=== PATIENT | female | born 1960 | race Caucasian/White ===

== ENCOUNTER 2016-10-26 13:46 | Inpatient (IN) | payer BC ==
[~2016-10-26] VITALS: Ht 170.2 cm; Wt 88.7 kg
--- NOTE | ~2016-10-26 | EKG ---
PATIENT: ASHER STEEN UNIT #: [id number] Ventricular Rate: 82 BPM Atrial Rate: 82 BPM P-R Interval: 150 ms QRS Duration: 66 ms Q-T Interval: 396 ms QTC Calculation(Bezet): 462 ms P Holland: 24 degrees Calculated R Holland: -6 degrees Calculated T Holland: 35 degrees Diagnosis Line: Normal sinus rhythm Diagnosis Line: Nonspecific ST and T wave abnormality Diagnosis Line: Prolonged QT Diagnosis Line: Abnormal ECG Diagnosis Line: No previous ECGs available Diagnosis Line: Confirmed by MINNIE MENDEZ MD ([id number]) on Diagnosis Line: 10/26/2016 10:52:24 PM INTERPRETING MD: BREANNA
--- NOTE | ~2016-10-26 | CO ---
Unit #: [id number] #: [id number] Patient: ASHER STEEN [id number] [facility] [place]. [place], [place] [address] [id number] I MR#: [id number] NAME: ASHER STEEN ROOM: 571 Age: 56 Sex: F Admission Date: 10/26/2016 : 1960 Attending Physician: Melvin Vieyra M.D. Primary Care Physician: Yonas Rivas M.D. Consultation Date: 10/26/2016 CONSULTATION REPORT ATTENDING PHYSICIAN Pennie Watt M.D. REASON FOR CONSULTATION Severe iron deficiency anemia. HISTORY Ms. Steen is a 56-year-old, white female who lives at home by herself. Patient was informed by Dr. Rivas's office that she needs to go to the emergency room as her hemoglobin found on blood test was 4.6. Patient mentions history of intermittent hematochezia for several months. She also tells me that she had a colonoscopy about seven or eight years ago, which was unremarkable. For the past year, she has been having intermittent episodes of shortness of breath, palpitations, and near syncope. 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 In fact, she has not seen Dr. Rivas for a long time, in fact several years. Patient is postmenopausal. She does have a history of gastroesophageal reflux, but this is unchanged from baseline and is not very troublesome, rarely bothering her at nighttime. After admission, she was started on Protonix infusion and is getting packed cell transfusions. She has no other significant past medical history and her only surgeries included dilatation and curettage in the past. MEDICATIONS Home medications include: 1. Prilosec [id number] 80 mg p.o. daily. 2. Tylenol. 3. Xanax. 4. Diphenhydramine. ALLERGIES She has no known drug allergies. SOCIAL HISTORY Patient does not smoke, but drinks 4-5 beers on a daily basis and, at times, even more. She used to be a smoker, having stopped more than 10 years ago. FAMILY HISTORY There is no family history of colon or pancreatic cancer or liver disease. Her mother had lung cancer. Unit #: [id number] #: [id number] Patient: ASHER STEEN REVIEW OF SYSTEMS Detailed review of organ systems does not reveal any recent weight loss. No history of fever, chills, or rigors. No history of headache or seizures. There is a history of near syncope symptoms. There is history of shortness of breath. No history of cough, expectoration, or hemoptysis. No history of dysuria, hematuria, or pyuria. There is a history of intermittent hematochezia. No history of skin rash, aphthous ulcers in the mouth, or reactive arthritis. Rest of the organ systems is unremarkable. PHYSICAL EXAMINATION GENERAL APPEARANCE: She is alert and oriented and appears comfortable. The fact that her hemoglobin is 4.6 is not apparent from examination of her palms and conjunctivae. VITAL SIGNS: Her vital signs are stable with a temperature of 98.3, pulse 80 per minute and regular, respiratory rate 16, and blood pressure 129/71. She weighs 198 pounds and appears overweight. Her BMI is 31. HEENT: She has moderate pallor. No icterus or lymphadenopathy. EXTREMITIES: No peripheral edema. CARDIOVASCULAR: Examination reveals normal heart sounds. No murmurs on auscultation. LUNGS: Reveal normal breath sounds with good air entry. ABDOMEN: Soft, obese, and nontender. Liver and spleen are not palpable. Bowel sounds normal. DIAGNOSTIC STUDIES LABORATORY: Lab evaluation shows a hemoglobin of 4.6 with a MCV of 58. White count and platelet counts are normal. INR is 1.1. Serum chemistry shows completely normal metabolic profile. Her iron studies were ordered and show TIBC of 600 and transferrin saturation of 2, and iron of 11 indicating virtually no iron reserves. B12 and folate were normal. CLINICAL IMPRESSION Patient with severe iron deficiency anemia, most likely has happened over a period of time as she has had plenty of time to compensate. The differential diagnosis includes colorectal neoplasia, peptic ulcer disease, angiodysplasia, and with some degree alcoholic suppression of bone marrow. A diagnostic upper gastrointestinal endoscopy and a colonoscopy is warranted. Patient is hesitant to have colonoscopy right now and would rather have it as an outpatient. Therefore, an upper endoscopy will be performed tomorrow and, if that is normal, an outpatient colonoscopy will be scheduled within a week. Patient will be discharged home tomorrow. She will also be started on iron transfusion tomorrow. Thank you very much for asking me to see this patient and I appreciate the consult. Dictated by... Ankur Phelps TD: 10/27/2016 09:53 JOB #: [id number] CC: Pennie Watt M.D. Unit #: [id number] #: [id number] Patient: ASHER STEEN CONSULTATION REPORT Page 1 of 1 X Brando Calvillo MD X CONSULTATION REPORT
--- NOTE | ~2016-10-26 | HP ---
Unit #: [id number] #: [id number] Patient: ASHER STEEN [id number] [facility] [address] [facility]. [place], [place] [address] [id number] I MR#: [id number] NAME: ASHER STEEN ROOM: 21003 Age: 56 Sex: F Admission Date: 10/26/2016 : 1960 Attending Physician: Pennie Watt M.D. Primary Care Physician: Yonas Rivas M.D. HISTORY AND PHYSICAL CHIEF COMPLAINT Abnormal labs. HISTORY OF PRESENT ILLNESS The patient is a 56-year-old female with a past medical history of alcohol abuse who presented to the emergency department for evaluation of the above. The patient states that she has had at least a one-month history of bright red blood with bowel movements. She states that she has had intermittent loose stool. She denies any abdominal pain. She has had decreased energy for the past month, as well as dyspnea on exertion when walking across the room. She denies any chest pain. She has had palpitations. She has had occasional cough. She denies any fever. The patient saw her primary care physician this morning. Labs were done, and she was told to go to the emergency department for a hemoglobin of 4.9. In the emergency department, initial pulse and blood pressure were 102 and 149/79, respectively. Hemoglobin here is 4.6. She was noted to be Hemoccult positive. Two units of packed red blood cells have been ordered, as well as Protonix 80 mg bolus, followed by a drip at 8 mg/hour. She is being admitted to [facility] for evaluation and further treatment. Of note, the patient had a colonoscopy in 2008 that showed hemorrhoids and diverticular disease per the patient. She does not recall where it was done. PAST MEDICAL HISTORY Patient denies hospitalizations. PAST SURGICAL HISTORY 1. Colonoscopy in 2008 showed hemorrhoids and diverticular disease per the patient (no records). 2. D and C. SOCIAL HISTORY The patient is a daily drinker. She states that she drinks four to six beers daily. She denies ever going through withdrawal. She is a former smoker. She denies illicit drug use. She is currently unemployed. Her code status is a Full Code. FAMILY HISTORY Notable for her mother having lung cancer. Her dad at the age of 90. Unit #: [id number] #: [id number] Patient: ASHER STEEN ALLERGIES No known allergies. HOME MEDICATIONS 1. Xanax 0.5 mg twice daily p.r.n. 2. Prilosec 20 mg daily p.r.n. 3. Diphenhydramine 50 mg at bedtime p.r.n. 4. Tylenol 650 mg daily p.r.n. REVIEW OF SYSTEMS A complete review of systems is negative except as indicated in the HPI. The patient denies ever having an EGD. Her last period was in April 2016. She denies any vaginal bleeding. PHYSICAL EXAMINATION VITAL SIGNS: Temperature is 97.8, pulse 102, respirations 16, blood pressure 149/79, and oxygen saturation is 98% on room air. GENERAL: Patient is a female who is awake, alert, and in no acute distress. HEENT: Head is atraumatic. Mucous membranes are moist. NECK: Supple. Trachea is midline. CARDIOVASCULAR: Regular rate and rhythm. LUNGS: Clear to auscultation bilaterally with no increased work of breathing. ABDOMEN: Soft and nontender with bowel sounds present in all four quadrants. Rectal exam was Hemoccult positive per my discussion with ER staff. EXTREMITIES: Nontender with no pedal edema. NEUROLOGIC: Patient is awake and alert. She follows commands. PSYCHIATRIC: Mood and affect are normal. Patient is cooperative. SKIN: Skin of examined areas is warm and dry. DIAGNOSTIC STUDIES LABORATORY: Complete blood count notable for hemoglobin and hematocrit of 4.6 and 16.3, respectively, MCV is 58.1, and RDW 20.7. Comprehensive metabolic panel is essentially normal. Lipase is negative. INR is 1.1. ASSESSMENT The patient is a 56-year-old female with: 1. Symptomatic anemia. The patient's hemoglobin is 4.6 with no baseline for comparison. Two units of packed red blood cells have been ordered. 2. Gastrointestinal bleed. The patient had a colonoscopy in 2008 (no records). 3. Alcohol abuse. The patient's last drink was yesterday. She denies ever going through withdrawal. 4. History of diverticular disease. 5. Former smoker. PLAN 1. Admit to ICU. 2. Clear liquid diet for possible endoscopy. 3. Protonix 80 mg IV if not already given, followed by Protonix drip at 8 mg/hour. 4. Iron studies, B12, and folate. 5. Hemoglobin and hematocrit one hour after transfusion and q.6 hours. Will plan to transfuse for hemoglobin less than 8. 6. Consult Dr. Calvillo regarding GI bleed. Unit #: [id number] #: [id number] Patient: ASHER STEEN 7. Check EKG and cardiac enzymes. 8. Alcohol withdrawal protocol. 9. Check magnesium level. 10. SCDs for DVT prophylaxis. 11. Repeat labs in the morning including magnesium. 12. Additional workup and consultants based on above. Thirty-two (32) minutes critical care time spent in the care of this patient (5:15-5:47 p.m.). Dictated by Ankur Jang/jony TD: 10/26/2016 18:52 JOB #: [id number] HISTORY AND PHYSICAL Page 1 of 1 X Pennie Watt MD X HISTORY AND PHYSICAL
--- NOTE | ~2016-10-26 | DS ---
Unit #: [id number] #: [id number] Patient: ASHER STEEN [id number] [place], [place] [address] [id number] I MR#: [id number] NAME: ASHER STEEN ROOM: 57 Age: 56 Sex: F Admission Date: 10/26/2016 : 1960 Discharge Date: 10/27/2016 Attending Physician: Melvin Vieyra M.D. Primary Care Physician: Yonas Rivas M.D. DISCHARGE SUMMARY DISCHARGE DIAGNOSES 1. Symptomatic anemia. 2. Hematochezia. 3. Alcohol abuse. 4. Iron deficiency. 5. Anxiety disorder. HOSPITAL COURSE The patient is a 56-year-old female who presented to [facility] Emergency Department at the request of primary care provider. Apparently she was noted to have a hemoglobin of 4.9. The patient states that she has been feeling dizzy, especially with standing, off and on for over a year. She states that she has been having bright red blood with bowel movements. The patient was admitted, and laboratory workup revealed an iron deficiency. The patient was taken for EGD, given history of daily alcohol use, and was only noted to have a coincidental Schatzki ring. The patient has had no bleeding while admitted to the hospital. Her hemoglobin is stable at 7.5, and she denies symptoms. As a result, she is being discharged home at this time and has an outpatient colonoscopy scheduled 8 days from today. DISCHARGE MEDICATIONS 1. Tylenol 650 mg p.o. daily as needed for pain. 2. Diphenhydramine 50 mg p.o. q.h.s. p.r.n. sleep. 3. Xanax 0.5 mg p.o. b.i.d. as needed for anxiety. 4. Zantac daily. 5. Iron gluconate 324 mg p.o. b.i.d. FOLLOWUP 1. As mentioned above, the patient should follow up for the colonoscopy, which has already been scheduled. 2. She should follow up with Dr. Rivas within one month of her colonoscopy. Dictated by... Melvin Vieyra M.D. CAM/db Unit #: [id number] #: [id number] Patient: ASHER STEEN TD: 10/28/2016 11:46 JOB #: [id number] DISCHARGE SUMMARY Page 1 of 1 X Melvin Vieyra MD DISCHARGE SUMMARY
[2016-10-26 14:38] LABS: BASOPHIL# 0.1 X10e3 (0-0.3); BASOPHIL% 1.2 % (0-2.5); EOSINOPHIL# 0.1 X10e3 (0-0.7); EOSINOPHIL% 1.3 % (0.0-7.0); HEMATOCRIT 16.3 % (35.0-45.0); LYMPHOCYTE# 1.3 X10e3 (1.0-3.5); LYMPHOCYTE% 21.6 % (17.0-45.0); MEAN CELL VOLUME 58.1 FL (83-96); MEAN CORPUSCULAR HEMOGLOBIN 16.6 PG (28-34); MEAN CORPUSCULAR HGB CONC 28.5 g/dL (30-36); MEAN PLATELET VOLUME 8.1 FL (6.5-11.5); MONOCYTE# 0.7 X10e3 (0-1.0); MONOCYTE% 10.9 % (3.0-12.0); PLATELET COUNT 395 X10e3 (140-420); RED BLOOD COUNT 2.81 X10e (3.90-5.30); RED CELL DISTRIBUTION WIDTH 20.7 % (11.0-15.5); WHITE BLOOD COUNT 6.2 X10e3 (4.0-10.5)
[2016-10-26 14:59] LABS: HEMOGLOBIN 4.6 gm/dL (12.0-16.0)
[2016-10-26 15:00] LABS: DIFF IND YES
[2016-10-26 15:04] LABS: PLATELET ESTIMATE NORMAL (NORMAL); RBC NORMAL YES
[2016-10-26 15:06] LABS: ANISOCYTOSIS MOD; HYPOCHROMIA MOD; POIKILOCYTOSIS SL
[2016-10-26 15:33] LABS: INR 1.1; PROTHROMBIN TIME (PATIENT) 11.4 SECONDS (10.0-11.7)
[2016-10-26 15:40] LABS: BILIRUBIN, DIRECT 0.1 mg/dL (0.0-0.2); BILIRUBIN,INDIRECT 0.5 mg/dL (0.0-0.9); BILIRUBIN,TOTAL 0.6 mg/dL (0.2-2.0); CREATININE SERUM 0.8 mg/dL (0.6-1.4); GLOM FILT RATE Estimated 83.1 mL/min (>60); POTASSIUM 3.9 mmol/L (3.5-5.1); PROTEIN TOTAL SERUM 7.9 g/dL (6.0-8.3)
[2016-10-26] MEDS ORDERED: PATIENT'S PHARMACY (16:22)
[2016-10-26] MEDS ORDERED: XANAX0.5 M1 PO (16:22)
[2016-10-26] MEDS ORDERED: DIPHENHYDRAMINE50 M1 PO (16:23)
[2016-10-26] MEDS ORDERED: PRILOSEC PO (16:23)
[2016-10-26] MEDS ORDERED: TYL325 PO (16:23)
[2016-10-26 18:28] LABS: CK TOTAL 49 IU/L (26-140)
[2016-10-26 18:35] LABS: IRON SERUM 11 ug/dL (28-170); TOTAL IRON BINDING CAPACITY 607 ug/dL (269-535); TRANSFERRIN 434 mg/dL (192-382); TRANSFERRIN SATURATION 2 % (20-50)
[2016-10-26 18:55] LABS: FOLATE (FOLIC ACID) 11.8 ng/mL (>5.8)
[2016-10-27 00:45] LABS: CK TOTAL 39 IU/L (26-140)
[2016-10-27 01:13] LABS: HEMATOCRIT 22.8 % (35.0-45.0)
[2016-10-27] MEDS ORDERED: ZANTAC PO (02:41)
[2016-10-27 06:40] LABS: URINE APPEARANCE CLEAR; URINE BILIRUBIN NEG (NEG); URINE BLOOD NEG (NEG); URINE COLOR YELLOW; URINE GLUCOSE NEG (NEG); URINE KETONE NEG (NEG); URINE LEUKOCYTE ESTERASE NEG (NEG); URINE NITRATE NEG (NEG); URINE PH 5.5 (5-8); URINE PROTEIN NEG (NEG); URINE SPECIFIC GRAVITY 1.005 (1.003-1.035); URINE UROBILINOGEN 0.2 MG/DL (NEG)
[2016-10-27 07:16] LABS: AMPHETAMINE NEG (NEG); BARBITURATES NEG (NEG); BENZODIAZEPINES POS (NEG); COCAINE NEG (NEG); MARIJUANA NEG (NEG); OPIATES NEG (NEG); TRICYCLIC ANTIDEPRESSANTS NEG (NEG); U METHADONE NEG (NEG)
[2016-10-27 08:15] LABS: HEMATOCRIT 24.1 % (35.0-45.0); HEMOGLOBIN 7.5 gm/dL (12.0-16.0); MEAN CORPUSCULAR HEMOGLOBIN 20.2 PG (28-34); MEAN PLATELET VOLUME 8.3 FL (6.5-11.5); RED BLOOD COUNT 3.71 X10e (3.90-5.30); RED CELL DISTRIBUTION WIDTH 28.5 % (11.0-15.5)
[2016-10-27 08:45] LABS: ALBUMIN SERUM 3.9 g/dL (3.5-5.0); BILIRUBIN,TOTAL 1.4 mg/dL (0.2-2.0); CALCIUM SERUM 9.2 mg/dL (8.4-10.2); CREATININE SERUM 0.7 mg/dL (0.6-1.4); GLOM FILT RATE Estimated 97.5 mL/min (>60); POTASSIUM 3.6 mmol/L (3.5-5.1); PROTEIN TOTAL SERUM 8.1 g/dL (6.0-8.3); THYROID STIMULATING HORMONE 3.63 uIU/ml (0.34-5.60)
[2016-10-27 08:52] LABS: FREE THYROXIN (T4) 0.84 ng/dL (0.58-1.64)
[2016-10-27 08:54] LABS: IRON SERUM 198 ug/dL (28-170); TOTAL IRON BINDING CAPACITY 604 ug/dL (269-535); TRANSFERRIN 432 mg/dL (192-382); TRANSFERRIN SATURATION 33 % (20-50)
[2016-10-27] MEDS ORDERED: IRON325 MG PO (12:10)
[2016-11-04] MEDS ORDERED: ANUSOL-HC SUPP25 M1 PR (10:36)
== END 2016-10-27 12:47 | disposition home or self-care (01) | DRG 812 ==
LOC: CED 13:46 → CEDOF 17:40 → CED 18:17 → CEDOF 18:17 → C5C 10-27 02:19
PROVIDERS: Emergency Medicine; Family Medicine; Internal Medicine Gastroenterology
PROC: 30233N1 Transfusion of Nonautologous Red Blood Cells into Peripheral Vein, Percutaneous Approach (ICD-10-PCS; principal; 2016-10-26)
DX: D50.9 Iron deficiency anemia, unspecified (principal); K22.2 Esophageal obstruction; F32.9 Major depressive disorder, single episode, unspecified; K92.1 Melena; F10.10 Alcohol abuse, uncomplicated; F41.9 Anxiety disorder, unspecified; Z87.891 Personal history of nicotine dependence; Z80.1 Family history of malignant neoplasm of trachea, bronchus and lung; M06.9 Rheumatoid arthritis, unspecified; Z88.2 Allergy status to sulfonamides
CPT/HCPCS: 36415; 80048; 80053; 80076; 80307; 81003; 82550; 82607; 82728; 82746; 83540; 83550; 83690; 83735; 84439; 84443; 84466; 84484; 85014; 85018; 85025; 85027; 85610; 85730; 86592; 86850; 86900; 86901; 86923; 93005; 99291; C9113; J2250; J2916; J3411; J7042; P9016

== ENCOUNTER → 2016-11-04 | Day surgery (SDC) | payer BC ==
[~2016-11-04] MED LIST: ANUSOL-HC SUPP25 M1 PR; DIPHENHYDRAMINE50 M1 PO; IRON325 MG PO; PATIENT'S PHARMACY; PRILOSEC PO; TYL325 PO; XANAX0.5 M1 PO; ZANTAC PO
--- NOTE | ~2016-11-04 | OR ---
Unit #: [id number] #: [id number] Patient: ASHER STEEN [id number] [address] [place], [place] [address] [id number] O MR#: [id number] NAME: ASHER STEEN ROOM: Date of Procedure: 10/27/2016 Admission Date: 11/04/2016 Surgeon: Brando Calvillo M.D. : 1960 Attending Physician: Brando Calvillo M.D. Primary Care Physician: Yonas Rivas M.D. OPERATIVE REPORT ADDITIONAL ATTENDING PHYSICIAN Dr. Melvin Vieyra. PRIMARY CARE PHYSICIAN Yonas Rivas M.D. PREOPERATIVE DIAGNOSIS Severe iron deficiency anemia. PROCEDURE PERFORMED Upper gastrointestinal endoscopy. POSTOPERATIVE DIAGNOSES The patient had a coincidental distal esophageal Schatzki ring. The latter was felt to be wide open, not requiring dilation. Otherwise, examination was normal up to third part of duodenum. RECOMMENDATIONS A colonoscopy is warranted and the patient has elected to have it done as an outpatient. This is being scheduled for the next week. She can be discharged home from GI standpoint. SEDATION USED MAC. DESCRIPTION OF PROCEDURE Following detailed explanation of the potential risks and complications of an upper endoscopy, namely perforation, bleeding, and complications related to sedation, the patient was brought to GI lab and laid in the left lateral decubitus position. Lubricated tip of the Olympus video upper endoscope was passed through the bite block into the proximal esophagus under direct vision. The entire esophageal mucosa was examined and appeared normal. Z-line was nicely demarcated, there being no esophagitis or hiatus hernia. The patient did have a distal esophageal Schatzki ring which was felt to be wide open and not requiring dilation. The scope then advanced into the gastric cavity and the latter was insufflated. Mucosa of the fundus, body, and antrum was examined and appeared unremarkable. Pylorus was intubated with visualization of the normal duodenal bulb and second and third part of the duodenum. Upon withdrawal and retroflexion; incisura, cardia, and greater curve was examined and no additional findings were noted. The scope was then withdrawn in the distal esophagus. The entire esophageal mucosa was examined all the way up to pharynx. No additional findings were noted. Unit #: [id number] #: [id number] Patient: ASHER STEEN The patient tolerated the procedure without any postprocedure complications. Dictated by... Ankur Phelps TD: 11/06/2016 11:53 JOB #: [id number] OPERATIVE REPORT Page 1 of 1 X Brando Calvillo MD X PROCEDURE OPERATIVE NOTE
--- NOTE | ~2016-11-04 | OR ---
Unit #: [id number] #: [id number] Patient: ASHER STEEN [id number] [address] [place], [place] [address] [id number] O MR#: [id number] NAME: ASHER STEEN ROOM: Date of Procedure: 11/04/2016 Admission Date: 11/04/2016 Surgeon: Brando Calvillo M.D. : 1960 Attending Physician: Brando Calvillo M.D. Primary Care Physician: Yonas Rivas M.D. OPERATIVE REPORT PREOPERATIVE DIAGNOSES Hematochezia and iron deficiency anemia. PROCEDURES PERFORMED Colonoscopy and polypectomy. POSTOPERATIVE DIAGNOSES 1. The patient had a single sessile polyp in the cecum. This was about 8 mm in size and was removed using snare polypectomy. 2. Medium-sized external and internal hemorrhoids. These are not suitable for band ligation and will require a formal surgical hemorrhoidectomy in case of need for any intervention. 3. Rest of the examination up to cecum and terminal ileum was normal. The quality of the prep was excellent. No diverticulosis was present. RECOMMENDATIONS 1. Anusol-HC suppositories on a p.r.n. basis. 2. The patient will be followed up in the office in 3 months' time. SEDATION USED MAC. DESCRIPTION OF PROCEDURE Following detailed explanation of the potential risks and complications of a colonoscopy, namely perforation, bleeding, and complication related to sedation, the patient was brought to GI lab and laid in the left lateral decubitus position. Digital rectal examination was performed, the latter revealed presence of external hemorrhoids. Lubricated tip of the Olympus video colonoscope was inserted through the anus and advanced under direct vision. The scope was advanced past rectosigmoid into descending colon. No diverticula were noted in this area. The scope tip was then navigated all the way up to cecum with visualization of the ileocecal valve and the appendiceal orifice. Preparation was excellent with good visualization and photodocumentation was obtained. Last several inches of terminal ileum were also visualized after intubation of the ileocecal valve and appeared normal. Successive segments of the colonic mucosa were examined upon withdrawal. A single sessile polyp was noted in the cecum about 8 mm in size. It was removed using snare polypectomy. No additional polyps were noted. The patient did not have any diverticulosis, but did have medium-sized internal and external hemorrhoids. These were felt not to be suitable for band ligation. The scope was then withdrawn. The patient returned to the recovery area. She tolerated the procedure without any Unit #: [id number] #: [id number] Patient: ASHER STEEN postprocedure complications. Dictated by... Ankur Phelps/eric TD: 11/04/2016 11:14 JOB #: [id number] CC: Yonas Rivas M.D. OPERATIVE REPORT Page 1 of 1 X Brando Calvillo MD X PROCEDURE OPERATIVE NOTE
== END | disposition home or self-care (01) ==
LOC: COPS 06:46
DX: K22.2 Esophageal obstruction (principal); D50.9 Iron deficiency anemia, unspecified; K21.9 Gastro-esophageal reflux disease without esophagitis; Z87.19 Personal history of other diseases of the digestive system; Z79.899 Other long term (current) drug therapy
CPT/HCPCS: 88305; J2250